=== PATIENT | female | born 1960 | race African-American/Black ===

== ENCOUNTER 2017-02-10 13:37 | Emergency (ER) | payer OTHER ==
[~2017-02-10] VITALS: Ht 170.2 cm; Wt 68.0 kg
[2017-02-10 18:18] VITALS: BP 109/66
== END 2017-02-10 18:19 | disposition home or self-care (01) ==
LOC: ER 14:45
DX: R22.2 Localized swelling, mass and lump, trunk (principal); F17.200 Nicotine dependence, unspecified, uncomplicated; F12.10 Cannabis abuse, uncomplicated
CPT/HCPCS: 99281